=== PATIENT | male | born 1980 | race African-American/Black ===

== ENCOUNTER 2018-04-07 08:49 | Emergency (ER) | payer MEDICARE, MEDICAID ==
[~2018-04-07] VITALS: Ht 180.3 cm; Wt 66.0 kg
[2018-04-07 09:05] VITALS: BP 129/87
--- NOTE | 2018-04-07 09:10 | NUR ---
37YM BIB SELF C/O RT FOOT PAIN STEP ON SOMETHING AND PUNCTURE HIS SHOES. AAOX4 WITH EVEN AND STEADY GAIT; PATIENT STATES PAIN OF 5/10 AT THIS TIME; VSS; PATIENT POSITIONED FOR COMFORT; HOB ELEVATED; BEDRAILS UP X1; BED DOWN. ER MD MADE AWARE OF PT STATUS.
--- NOTE | 2018-04-07 09:10 | NUR ---
PT AMBULATES TO BED 5
--- NOTE | 2018-04-07 09:50 | NUR ---
Patient being evaluated by physician at bedside.
[2018-04-07] MEDS ORDERED: IBUPROFEN 600 MG TAB PO ONE (09:55)
--- NOTE | 2018-04-07 10:37 | NUR ---
Patient discharged with v/s stable. Written and verbal after care instructions given and explained. Patient alert, oriented and verbalized understanding of instructions. Ambulatory with steady gait. All questions addressed prior to discharge. ID band removed. Patient advised to follow up with PMD. Rx of LAMISIL, MOTRIN given. Patient educated on indication of medication including possible reaction and side effects. Opportunity to ask questions provided and answered.
[2018-04-07 10:38] VITALS: BP 128/86
== END 2018-04-07 10:37 | disposition home or self-care (01) ==
LOC: MED 08:49
DX: S91.331A Puncture wound without foreign body, right foot, initial encounter (principal); B35.3 Tinea pedis; E03.9 Hypothyroidism, unspecified; F20.9 Schizophrenia, unspecified; X58.XXXA Exposure to other specified factors, initial encounter; Y93.89 Activity, other specified; Y92.89 Other specified places as the place of occurrence of the external cause; Y99.8 Other external cause status
CPT/HCPCS: 73630; 90471; 90715; 99284; Q0092

== ENCOUNTER 2018-07-14 04:10 | Emergency (ER) | payer MEDICARE, MEDICAID ==
[~2018-07-14] VITALS: Ht 180.3 cm; Wt 65.8 kg
[2018-07-14 04:10] VITALS: BP 131/88
--- NOTE | 2018-07-14 04:10 | NUR ---
PT BIBA TO ER BED 7.
--- NOTE | 2018-07-14 04:15 | NUR ---
PT BIBA FOUND BY PD SLEEPING IN PARKING LOT OF [employer] [facility] WAS CALLED, PT STATES HE HAS RECURRING SYNCOPE EVENTS , PT AWAKE ALERT AND ORIENTED AT THIS TIME. PT STATES HE IS HOMELESS, AND HAS BEEN EATING BUT NOT DRINKING MUCH WATER. PT IS BRADYCARDIA BUT ASYMPTOMATIC. PMH SCHIZOPHRENIA
--- NOTE | 2018-07-14 04:28 | NUR ---
EKG PERFORMED AT BEDSIDE, PT COVERED IN GOWN AND BLANKET
[2018-07-14] MEDS ORDERED: DEXTROSE 50% 50 ML SYR IVP ONE ×2 (04:33→04:39)
[2018-07-14 04:45] LABS: BASOPHILS % (AUTO) 0.8 % (0.0-2.0); EOSINOPHILS # (AUTO) 0.1 K/uL (0-0.4); EOSINOPHILS % (AUTO) 1.2 % (0.0-4.0); HEMATOCRIT 36.5 % (36-52); LYMPHOCYTES # (AUTO) 1.9 K/uL (2.0-11.5); LYMPHOCYTES % (AUTO) 36.7 % (20.5-51.1); MEAN CORPUSCULAR HEMOGLOBIN 29 pg (27-31); MEAN CORPUSCULAR HGB CONC 33 g/dL (33-37); MEAN CORPUSCULAR VOLUME 87.4 fL (80-94); MONOCYTES # (AUTO) 0.3 K/uL (0.8-1.0); NEUTROPHILS # (AUTO) 2.9 K/uL (1.8-7.7); NEUTROPHILS % (AUTO) 55.3 % (42.2-75.2); PLATELET COUNT (AUTO) 339 K/uL (140-450); RED BLOOD CELL COUNT(AUTO) 4.18 MIL/uL (4.20-6.10); RED CELL DISTRIBUTION WIDTH 14.5 % (11.6-13.7); WHITE BLOOD COUNT (AUTO) 5.2 K/uL (4.8-10.8)
--- NOTE | 2018-07-14 04:45 | NUR ---
HOUSE SUP CALLED FOR SANDWICH FOR PT, PT PROVIDED W/ JUICE AND SNACKS
[2018-07-14 05:15] LABS: ANION GAP 8.8 (8-16); CARBON DIOXIDE 30.9 mmol/L (21-32); CREATININE 0.7 mg/dL (0.7-1.3); POTASSIUM 3.7 mmol/L (3.5-5.1)
[2018-07-14 05:16] LABS: APPEARANCE,URINE CLEAR (CLEAR); BILIRUBIN,URINE NEGATIVE (NEGATIVE); BLOOD, URINE NEGATIVE (NEGATIVE); COLOR,URINE YELLOW (YELLOW); LEUKOCYTE ESTERASE ,URINE NEGATIVE (NEGATIVE); NITRITE, URINE NEGATIVE (NEGATIVE); PH,URINE 5.5 (5.0-9.0); UGLUCOSE NEGATIVE (NEGATIVE)
[2018-07-14 05:20] LABS: BARBITURATE, URINE NEG. ng/ml (NEG <=200); BENZODIAZEPINE, URINE NEG. ng/mL (NEG <=200); CANNABINOID, URINE NEG. ng/mL (NEG <=50); COCAINE, URINE NEG. ng/mL (NEG <=300); OPIATE, URINE NEG. ng/mL (NEG <=2000); PHENCYCLIDINE SCREEN,URINE NEG. ng/mL (NEG <=25)
[2018-07-14 05:21] LABS: TOTAL BILIRUBIN 0.6 mg/dL (0.0-1.0)
--- NOTE | 2018-07-14 06:10 | NUR ---
PT IN BED SLEEPING, VSS , WILL CONTINUE TO MONITOR.
--- NOTE | 2018-07-14 07:23 | NUR ---
REPORT GIVEN TO KARY CONSTANTINO , TRANSFER OF CARE AT THIS TIME.
--- NOTE | 2018-07-14 07:25 | NUR ---
RECIEVED REPORT FROM MANAGER FEDERAL NURSE, SHELDON PAUL. PATIENT HAD NO COMPLAINTS OF PAIN AT THIS TIME. REPOSITIONED FOR COMFORT. WILL FOLLOW UP.
[2018-07-14 07:58] VITALS: BP 128/82
--- NOTE | 2018-07-14 07:59 | NUR ---
Patient discharged with v/s stable. Written and verbal after care instructions given and explained. Patient alert, oriented and verbalized understanding of instructions. Ambulatory with steady gait. All questions addressed prior to discharge. ID band removed. Patient advised to follow up with PMD. Opportunity to ask questions provided and answered.
== END 2018-07-14 07:59 | disposition home or self-care (01) ==
LOC: MED 04:10
DX: R55 Syncope and collapse (principal); R00.1 Bradycardia, unspecified; E07.9 Disorder of thyroid, unspecified; R94.31 Abnormal electrocardiogram [ECG] [EKG]
CPT/HCPCS: 36415; 80053; 80305; 81003; 82948; 85025; 93005; 99285

== ENCOUNTER 2018-07-15 02:33 | Inpatient (IN) | payer MEDICARE, MEDICAID ==
[~2018-07-15] VITALS: Ht 180.3 cm; Wt 62.6 kg
[2018-07-15 02:35] VITALS: BP 129/77
--- NOTE | 2018-07-15 02:46 | NUR ---
Patient ambulated to bed 11. RN evaluating patient at bedside.
--- NOTE | 2018-07-15 03:13 | NUR ---
Dr. Dial evaluating patient at bedside.
--- NOTE | 2018-07-15 03:15 | NUR ---
PT presented ER with a post status fall. PT stated he fell out on the street. right hand and elbow abrasions. no edema. stated he is homeless and non compliant with his medication. Medical HX schizoeffective, involunteer speech, and blacking out. KNA; SKIN IS PINK/WARM/DRY; AAOX4 and slgihty unsteady due to fall; PATIENT STATES PAIN OF 7/10 AT THIS TIME; VSS; PATIENT POSITIONED FOR COMFORT; HOB ELEVATED; BEDRAILS UP X2; BED DOWN. ER MD MADE AWARE OF PT STATUS.
[2018-07-15] MEDS ORDERED: BACITRACIN OINT 500 UNITS/GM PKT TP ONE (03:25)
--- NOTE | 2018-07-15 03:50 | NUR ---
XRAY AT BEDSIDE FOR INTERVENTION.
--- NOTE | 2018-07-15 03:54 | NUR ---
BLOOD GLUCOSE 56 AT THIS TIME, PT AOX4, ABLE TO TALK, PT GIVEN ORANGE JUICE, SNACKS AND SANDWICH, WILL RECHECK BG.
[2018-07-15 04:12] LABS: BASOPHILS # (AUTO) 0.1 K/uL (0.00-0.22); BASOPHILS % (AUTO) 1.1 % (0.0-2.0); EOSINOPHILS % (AUTO) 0.8 % (0.0-4.0); HEMATOCRIT 37.5 % (36-52); HEMOGLOBIN 12.1 g/dL (12.0-18.0); LYMPHOCYTES # (AUTO) 1.8 K/uL (2.0-11.5); LYMPHOCYTES % (AUTO) 33.6 % (20.5-51.1); MEAN CORPUSCULAR HEMOGLOBIN 29 pg (27-31); MEAN CORPUSCULAR HGB CONC 32 g/dL (33-37); MEAN CORPUSCULAR VOLUME 88.5 fL (80-94); MONOCYTES # (AUTO) 0.3 K/uL (0.8-1.0); MONOCYTES % (AUTO) 5.2 % (1.7-9.3); NEUTROPHILS # (AUTO) 3.3 K/uL (1.8-7.7); NEUTROPHILS % (AUTO) 59.3 % (42.2-75.2); PLATELET COUNT (AUTO) 318 K/uL (140-450); RED BLOOD CELL COUNT(AUTO) 4.24 MIL/uL (4.20-6.10); RED CELL DISTRIBUTION WIDTH 14.3 % (11.6-13.7); WHITE BLOOD COUNT (AUTO) 5.5 K/uL (4.8-10.8)
[2018-07-15 04:34] LABS: ANION GAP 6.6 (8-16); CREATININE 0.6 mg/dL (0.7-1.3); POTASSIUM 3.6 mmol/L (3.5-5.1)
[2018-07-15 04:50] LABS: ALBUMIN 4.2 g/dL (3.4-5.0); FREE T4 (FREE THYROXINE) 0.89 ng/dL (0.76-1.46); THYROID STIMULATING HORMONE 2.59 uIU/mL (0.34-3.74); TOTAL BILIRUBIN 1.1 mg/dL (0.0-1.0)
--- NOTE | 2018-07-15 05:00 | NUR ---
pt bs is 109. notified
[2018-07-15] MEDS: NACL 0.9% 1,000 ML IV SCH (05:19)
[2018-07-15] MEDS ORDERED: HYDROcodone/APAP 7.5/325 MG 1 TAB PO PRN (05:20)
[2018-07-15] MEDS ORDERED: ACETAMINOPHEN 325 MG TAB PO PRN (05:20)
[2018-07-15] MEDS ORDERED: ONDANSETRON 4 MG/2 ML VIAL IVP PRN (05:20)
--- NOTE | 2018-07-15 05:55 | NUR ---
Patient will be admitted to care of Dr. Chowdhury. Admited to telemetry. Will go to room 105B. Belongings list completed. Report to jennifer PRESTON. pt vitals stable.
--- NOTE | 2018-07-15 05:55 | NUR ---
Pt report given to jennifer krishna. Transfer of care at this time. pt vitals stable
--- NOTE | 2018-07-15 06:00 | NUR ---
RECEIVED PATIENT FROM [facility] WITH CHIEF COMPLAIN OF FALL. PATIENT WAS AA0X4, AMBULATORY. NO PERSONAL BELONGINGS EXCEPT SLIPPER ,CLOTHES. MRSA NASAL SWAB DONE. EXPLAIN PLAN OF CARE. NO IV ACCESS DURING THE ADMISSION. PUT IV ON LEFT AC FOR IV FLUID INFUSION. ENDORSED PATIENT TO AM SHIFT NURSE IN STABLE CONDITION. CALL LIGHTS WITHIN REACH. WILL CONTINUE TO MONITOR.
--- NOTE | 2018-07-15 06:15 | NUR ---
PATIENT HAS BEEN SCREENED AND CATEGORIZED LOW NUTRITION RISK. PATIENT WILL BE SEEN WITHIN 7 DAYS OF ADMISSION. 07/21/18 PRISCILA REN MS, RDN
[2018-07-15 06:20] VITALS: BP 111/65
--- NOTE | 2018-07-15 07:10 | NUR ---
RECEIVED REPORT FROM NIGHTSHIFT NURSE AT BEDSIDE. PATIENT HAS IV ACCESS ON HIS LEFT AC 20G. CONNECTED PATIENT TO IV FLUIDS AT 50 ML/HR NORMAL SALINE. PATIENT IS ALERT AND ORIENTED X4. NO DISTRESS NOTED WITH PATIENT. NO PAIN NOTED. PATIENT HAS ABRASIONS ON RIGHT ELBOW AND AN ADDITIONAL WOUND ON HIS RIGHT HAND. CALL LIGHT WITHIN REACH OF PATIENT. UPDATED BOARD IN PATIENT'S ROOM. LOWERED BED TO LOWEST SETTING. WILL CONTINUE TO MONITOR PATIENT.
[2018-07-15 08:00] VITALS: BP 120/62
[2018-07-15 08:01] LABS: PROTHROMBIN TIME 11.2 secs (10.8-13.4)
[2018-07-15] MEDS: DOCUSATE SODIUM 100 MG GELCAP PO SCH ×2 (08:21→21:09)
[2018-07-15] MEDS: PANTOPRAZOLE 40 MG INJ VIAL IVP SCH (08:21)
--- NOTE | 2018-07-15 08:25 | NUR ---
NOTIFIED DR. NOLAND OF PATIENT'S HEART RATE FALLING TO 39-43 BPM. PATIENT REMAINS ASYMPTOMATIC. DR. NOLAND CAME AND SAW PATIENT. WILL CONTINUE TO MONITOR PATIENT.
--- NOTE | 2018-07-15 08:30 | NUR ---
PATIENT TOOK ALL AM MEDICATIONS. STARTED PATIENT ON FLUIDS. WILL CONTINUE TO MONITOR PATIENT.
--- NOTE | 2018-07-15 11:20 | NUR ---
PATIENT RESTING AT THIS TIME. NO DISTRESS NOTED. WILL CONTINUE TO MONITOR PATIENT.
[2018-07-15 12:00] VITALS: BP 105/54
[2018-07-15] MEDS ORDERED: ARIPiprazole 10 MG TAB PO SCH (13:55)
[2018-07-15] MEDS ORDERED: QUEtiapine FUMARATE 25 MG TAB PO SCH (13:55)
[2018-07-15] MEDS: QUEtiapine FUMARATE 25 MG TAB PO SCH (14:48)
[2018-07-15] MEDS: ARIPiprazole 10 MG TAB PO SCH (14:48)
--- NOTE | 2018-07-15 14:48 | NUR ---
PATIENT TOOK MEDICATIONS WELL. WILL CONTINUE TO MONITOR PATIENT.
[2018-07-15 16:00] VITALS: BP 103/55
--- NOTE | 2018-07-15 16:35 | NUR ---
PATIENT RESTING AT THIS TIME. NO DISTRESS NOTED. WILL CONTINUE TO MONITOR PATIENT.
--- NOTE | 2018-07-15 19:19 | NUR ---
GAVE REPORT TO NIGHTSHIFT NURSE AT BEDSIDE. PATIENT IN STABLE CONDITION.
--- NOTE | 2018-07-15 19:20 | NUR ---
RECEIVED PATIENT RESTING COMFORTABLE ON BED. FALL PRECAUTION APPLIED. EXPLAIN PLAN OF CARE AND VERBALIZED UNDERSTANDING. CALL LIGHT WITHIN REACH. WILL CONTINUE TO MONITOR.
[2018-07-15 20:00] VITALS: BP 121/78
--- NOTE | 2018-07-15 20:00 | NUR ---
V/S TAKEN AND RECORDED. NO S/S OF DISTRESS NOTED AT THIS TIME.
--- NOTE | 2018-07-15 20:45 | NUR ---
BS TAKEN NO COVERAGE.
--- NOTE | 2018-07-15 21:00 | NUR ---
SCHEDULE MEDICATION GIVEN TOLERATED WELL. ALL NEEDS ATTENDED. FALL RISK PRECAUTION APPLIED. CALL LIGHT WITHIN REACH.
[2018-07-15] MEDS: BLOOD GLUCOSE MONITORING 1 DEV DEV FS SCH (21:09)
[2018-07-15 21:39] LABS: CHOL/HDL RATIO 3.2 (1-4.5); MAGNESIUM 1.8 mg/dL (1.8-2.4); PHOSPHORUS 3.9 mg/dL (2.5-4.9)
[2018-07-16] VITALS: BP 107/60
--- NOTE | 2018-07-16 | NUR ---
V/S TAKEN AND RECORDED. PATIENT BACK TO SLEEP AFTER TAKING V/S. NO S/S OF DISTRESS NOTED. CALL LIGHT WITHIN REACH. FALL PRECAUTION APPLIED.
[2018-07-16] MEDS: NACL 0.9% 1,000 ML IV SCH ×2 (01:19→21:41)
--- NOTE | 2018-07-16 02:00 | NUR ---
SEEN PATIENT RESTING COMFORTABLE ON BED. FALL PRECAUTION IMPLEMENTED. NO S/S OF DISTRESS NOTED. CALL LIGHT WITHIN REACH. WILL CONTINUE TO MONITOR.
[2018-07-16 04:00] VITALS: BP 125/79
--- NOTE | 2018-07-16 05:25 | NUR ---
RESIDENT AWARE ABOUT PATIENT SLOW HEART RATE.
[2018-07-16] MEDS: BLOOD GLUCOSE MONITORING 1 DEV DEV FS SCH ×3 (05:32→20:19)
--- NOTE | 2018-07-16 07:10 | NUR ---
RECEIVED REPORT FROM NIGHTSHIFT NURSE AT BEDSIDE. PATIENT IS ASLEEP AT THIS TIME. PATIENT AROUSABLE TO NAME. NO DISTRESS NOTED. NO PAIN NOTED. PATIENT HAS AN IV 20 G RUNNING NS AT 75 ML/HR. UPDATED BOARD IN PATIENT'S ROOM. LOWERED BED TO LOWEST SETTING. CALL LIGHT WITHIN REACH OF PATIENT. WILL CONTINUE TO MONITOR PATIENT.
--- NOTE | 2018-07-16 07:10 | NUR ---
GAVE REPORT TO AM SHIFT NURSE AT BEDSIDE FOR CONTINUITY OF CARE. PATIENT IN STABLE CONDITION.
[2018-07-16 08:00] VITALS: BP 111/76
[2018-07-16] MEDS: PANTOPRAZOLE 40 MG INJ VIAL IVP SCH (08:37)
[2018-07-16] MEDS: QUEtiapine FUMARATE 25 MG TAB PO SCH (08:38)
[2018-07-16] MEDS: ARIPiprazole 10 MG TAB PO SCH (08:38)
[2018-07-16] MEDS: DOCUSATE SODIUM 100 MG GELCAP PO SCH ×2 (08:38→20:20)
--- NOTE | 2018-07-16 08:38 | NUR ---
GAVE AM MEDIATIONS TO PATIENT. PATIENT TOLERATED WELL.
[2018-07-16 10:38] LABS: BASOPHILS # (AUTO) 0.1 K/uL (0.00-0.22); BASOPHILS % (AUTO) 1.1 % (0.0-2.0); EOSINOPHILS % (AUTO) 0.7 % (0.0-4.0); HEMATOCRIT 38.4 % (36-52); HEMOGLOBIN 12.5 g/dL (12.0-18.0); LYMPHOCYTES # (AUTO) 1.4 K/uL (2.0-11.5); LYMPHOCYTES % (AUTO) 28.6 % (20.5-51.1); MEAN CORPUSCULAR HEMOGLOBIN 29 pg (27-31); MEAN CORPUSCULAR HGB CONC 33 g/dL (33-37); MEAN CORPUSCULAR VOLUME 88.1 fL (80-94); MONOCYTES # (AUTO) 0.3 K/uL (0.8-1.0); MONOCYTES % (AUTO) 5.9 % (1.7-9.3); NEUTROPHILS # (AUTO) 3.2 K/uL (1.8-7.7); NEUTROPHILS % (AUTO) 63.7 % (42.2-75.2); PLATELET COUNT (AUTO) 308 K/uL (140-450); RED BLOOD CELL COUNT(AUTO) 4.36 MIL/uL (4.20-6.10); RED CELL DISTRIBUTION WIDTH 14.6 % (11.6-13.7)
--- NOTE | 2018-07-16 10:39 | NUR ---
PATIENT RESTING AT THIS TIME. WILL CONTINUE TO MONITOR PATIENT.
[2018-07-16 11:02] LABS: ANION GAP 5.2 (8-16); CARBON DIOXIDE 30.5 mmol/L (21-32); CREATININE 0.7 mg/dL (0.7-1.3); POTASSIUM 3.7 mmol/L (3.5-5.1)
[2018-07-16 12:00] VITALS: BP 103/67
--- NOTE | 2018-07-16 13:27 | NUR ---
PATIENT ASLEEP. NO DISTRESS NOTED. WILL CONTINUE TO MONITOR PATIENT.
[2018-07-16] MEDS ORDERED: QUET25TA PO (13:33)
[2018-07-16] MEDS ORDERED: SIMV5TAB1 PO (13:34)
[2018-07-16] MEDS ORDERED: ARIP5TAB8 PO (13:34)
--- NOTE | 2018-07-16 15:13 | NUR ---
PATIENT IS LAYING IN LATERAL POSITION. NO DISTRESS NOTED. WILL CONTINUE TO MONITOR PATIENT.
[2018-07-16 16:00] VITALS: BP 117/76
--- NOTE | 2018-07-16 17:50 | NUR ---
NO DISTRESS NOTED. WILL CONTINUE TO MONITOR
--- NOTE | 2018-07-16 19:26 | NUR ---
GAVE REPORT TO NIGHTSHIFT NURSE AT BEDSIDE. PATIENT IN STABLE CONDITION.
--- NOTE | 2018-07-16 19:30 | NUR ---
RECEIVED PATIENT ASLEEP COMFORTABLE ON BED. FALL PRECAUTION APPLIED. CALL LIGHTS WITHIN REACH. WILL CONTINUE TO MONITOR.
[2018-07-16 20:00] VITALS: BP 122/76
[2018-07-16] MEDS ORDERED: SIMVASTATIN 10 MG TAB PO SCH (21:00)
--- NOTE | 2018-07-16 21:36 | NUR ---
BS TAKEN AND RECORDED. NO COVERAGE PER SLIDING SCALE. SCHEDULE MEDICATION GIVEN TOLERATED WELL. PATIENT BACK TO SLEEP. CALL LIGHT WITHIN REACH. NO S/S OF DISTRESS NOTED AT THIS TIME.
[2018-07-17] VITALS: BP 100/61
--- NOTE | 2018-07-17 | NUR ---
V/S TAKEN AND RECORDED. PATIENT SEEN ASLEEP . NO S/S OF DISTRESS NOTED. CALL LIGHT WITHIN REACH.
--- NOTE | 2018-07-17 02:00 | NUR ---
SEEN PATIENT ASLEEP COMFORTABLE ON BED. NO S/S OF DISTRESS NOTED. CALL LIGHT WITHIN REACH. ALL NEEDS ATTENDED.
[2018-07-17 04:00] VITALS: BP 132/72
[2018-07-17] MEDS: BLOOD GLUCOSE MONITORING 1 DEV DEV FS SCH ×2 (05:25→13:15)
[2018-07-17 05:52] LABS: BASOPHILS # (AUTO) 0.1 K/uL (0.00-0.22); EOSINOPHILS # (AUTO) 0.1 K/uL (0-0.4); EOSINOPHILS % (AUTO) 1.7 % (0.0-4.0); HEMATOCRIT 39.9 % (36-52); HEMOGLOBIN 13.2 g/dL (12.0-18.0); LYMPHOCYTES % (AUTO) 36.5 % (20.5-51.1); MEAN CORPUSCULAR HEMOGLOBIN 29 pg (27-31); MEAN CORPUSCULAR HGB CONC 33 g/dL (33-37); MEAN CORPUSCULAR VOLUME 87.4 fL (80-94); MONOCYTES # (AUTO) 0.4 K/uL (0.8-1.0); MONOCYTES % (AUTO) 6.8 % (1.7-9.3); NEUTROPHILS # (AUTO) 2.9 K/uL (1.8-7.7); PLATELET COUNT (AUTO) 319 K/uL (140-450); RED BLOOD CELL COUNT(AUTO) 4.56 MIL/uL (4.20-6.10); RED CELL DISTRIBUTION WIDTH 14.5 % (11.6-13.7); WHITE BLOOD COUNT (AUTO) 5.5 K/uL (4.8-10.8)
[2018-07-17 06:13] LABS: ANION GAP 6.6 (8-16); CREATININE 0.7 mg/dL (0.7-1.3); POTASSIUM 3.6 mmol/L (3.5-5.1)
[2018-07-17 07:23] LABS: APPEARANCE,URINE CLEAR (CLEAR); BILIRUBIN,URINE NEGATIVE (NEGATIVE); BLOOD, URINE NEGATIVE (NEGATIVE); COLOR,URINE YELLOW (YELLOW); LEUKOCYTE ESTERASE ,URINE NEGATIVE (NEGATIVE); NITRITE, URINE NEGATIVE (NEGATIVE); UGLUCOSE NEGATIVE (NEGATIVE)
[2018-07-17 07:29] LABS: BARBITURATE, URINE NEG. ng/ml (NEG <=200); BENZODIAZEPINE, URINE NEG. ng/mL (NEG <=200); CANNABINOID, URINE NEG. ng/mL (NEG <=50); COCAINE, URINE NEG. ng/mL (NEG <=300); OPIATE, URINE NEG. ng/mL (NEG <=2000); PHENCYCLIDINE SCREEN,URINE NEG. ng/mL (NEG <=25)
--- NOTE | 2018-07-17 07:35 | NUR ---
ENDORSED PATIENT TO AM SHIFT NURSE AT BEDSIDE FOR CONTINUITY OF CARE. PATIENT IN STABLE CONDITION.
--- NOTE | 2018-07-17 07:36 | NUR ---
RECEIVED REPORT FROM THE POULTRY SCALDER NURSE AT BEDSIDE FOR CONTINUITY OF CARE. PT IS AWAKE AND ORIENTED. V/S WITHIN NORMAL RANGE. IV L AC 20G NS AT 50ML INFUSING. R HAND AND ELBOW ABRASION S/P FALL. PT IS AMBULATORY. PT IS TO HAVE AN ECHO TODAY ORDERED BY DR MILLER. NO C/O OF PAIN. WILL CONTINUE TO MONITOR PT.
[2018-07-17 08:00] VITALS: BP 110/63
[2018-07-17] MEDS: DOCUSATE SODIUM 100 MG GELCAP PO SCH (08:39)
[2018-07-17] MEDS: QUEtiapine FUMARATE 25 MG TAB PO SCH (08:40)
[2018-07-17] MEDS: ARIPiprazole 10 MG TAB PO SCH (08:40)
[2018-07-17] MEDS: PANTOPRAZOLE 40 MG INJ VIAL IVP SCH (08:40)
--- NOTE | 2018-07-17 08:45 | NUR ---
ADMINISTERED MORNING MEDS. PT TOLERATED WELL. WILL CONTINUE TO MONITOR PT.
--- NOTE | 2018-07-17 10:08 | NUR ---
PT IS HAVING HIS ECHO DONE. TOLERATING WELL.
[2018-07-17 12:00] VITALS: BP 105/60
--- NOTE | 2018-07-17 12:00 | NUR ---
BLOOD SUGAR CHECK, 87. BP WITHIN NORMAL RANGE. HR 53. LUNCH IS HERE. WILL CONTINUE TO MONITOR PT.
--- NOTE | 2018-07-17 13:34 | NUR ---
CM NOTE INITIAL REVIEW FAXED TO [facility] [phone] JOHNIE BERMEO PH# [phone] EXT 1958 AND TO [facility] [phone] GERALDINE Cruz PH# [phone] OPT 1
--- NOTE | 2018-07-17 15:40 | NUR ---
DR MILLER HERE TO SEE PT. REQUESTED ORTHOSTATIC BP. IT WAS SUPPOSED TO BE DONE EARLY THIS MORNING. WILL F/U WHY IT WAS NOT DONE. FARMWORKER ANIMAL NOTIFIED. WILL CONTINUE TO MONITOR PT.
--- NOTE | 2018-07-17 16:00 | NUR ---
D/C INSTRUCTIONS GIVEN. PT VERBALIZED UNDERSTANDING. REMOVED IV, CANNULA INTACT. NO BLEEDING NOTED. REMOVED ALL ID BANDS. REMOVED TELE MONITOR. PT WILL GET DRESSED AND AWAIT FOR HIS UNCLE. WILL LET US KNOW WHEN HE IS HERE.
--- NOTE | 2018-07-17 16:10 | NUR ---
STUDENT WHEELED PT OUT TO THE LOBBY, ACCOMPANIED BY UNCLE. PERSONAL BELONGINGS IN HAND. PT IS IN STABLE CONDITION.
== END 2018-07-17 16:10 | disposition home or self-care (01) | DRG 74 ==
LOC: MED 02:33 → MTU 05:19
PROVIDERS: ADMIT General Practice; ATTEND General Practice
DX: G90.9 Disorder of the autonomic nervous system, unspecified (principal); E16.2 Hypoglycemia, unspecified; F25.9 Schizoaffective disorder, unspecified; E83.51 Hypocalcemia; E78.5 Hyperlipidemia, unspecified; E03.9 Hypothyroidism, unspecified; E80.4 Gilbert syndrome; F32.9 Major depressive disorder, single episode, unspecified; R00.1 Bradycardia, unspecified; W18.30XA Fall on same level, unspecified, initial encounter; Y93.89 Activity, other specified; Z82.49 Family history of ischemic heart disease and other diseases of the circulatory system; Z59.0 Homelessness; Y92.89 Other specified places as the place of occurrence of the external cause; Y99.8 Other external cause status
CPT/HCPCS: 36415; 71045; 73080; 80048; 80053; 80305; 81003; 82150; 82550; 82553; 82948; 83036; 83605; 83690; 83735; 83880; 84100; 84439; 84443; 84484; 85025; 85610; 85730; 87081; 93005; 99285; C9113; J7030; Q0092

== ENCOUNTER 2018-07-21 16:19 | Emergency (ER) | payer MEDICARE, MEDICAID ==
[~2018-07-21] VITALS: Ht 180.3 cm; Wt 63.5 kg
[~2018-07-21 16:19] MED LIST: ARIP5TAB8 PO; QUET25TA PO; SIMV5TAB1 PO
[2018-07-21 16:25] VITALS: BP 110/70
--- NOTE | 2018-07-21 16:27 | NUR ---
PT AMBULATES TO BED 9
--- NOTE | 2018-07-21 16:35 | NUR ---
37YO M TO ER W/C/O SPLINTERS TO RT HAND X 8 DAYS. PT STATES THAT HE WAS ABLE TO SCRATCH SOME OF THEM OUT BUT FEELS THAT THE REST NEED TO COME OUT. AAOX4, LS CLEAR THROUGHOUT. RR EVEN AND UNLABBORED. ABD SOFT AND NON TENDER. WILL CONTINUE TO MONITOR. ER MD MADE AWARE. PMH: HYPOTHYROID, SCHIZOPHRENIA
--- NOTE | 2018-07-21 18:14 | NUR ---
Patient being evaluated by physician at bedside.
--- NOTE | 2018-07-21 18:31 | NUR ---
DR CARRERA AT BEDSIDE TO REMOVE SPLINTERS
[2018-07-21 18:43] VITALS: BP 112/71
--- NOTE | 2018-07-21 18:43 | NUR ---
Patient discharged with v/s stable. Written and verbal after care instructions given and explained. Patient verbalized understanding. Ambulatory with steady gait. All questions addressed prior to discharge. Advised to follow up with PMD.
== END 2018-07-21 18:43 | disposition home or self-care (01) ==
LOC: MED 16:19
DX: S60.551A Superficial foreign body of right hand, initial encounter (principal); E03.9 Hypothyroidism, unspecified; Z79.899 Other long term (current) drug therapy; W18.39XA Other fall on same level, initial encounter; Y93.89 Activity, other specified; Y92.89 Other specified places as the place of occurrence of the external cause; Y99.8 Other external cause status
CPT/HCPCS: 99285